=== PATIENT | female | born 1975 | race Caucasian/White ===

== ENCOUNTER 2016-12-23 09:32 | Emergency (ER) | payer MEDICAID ==
[2016-12-23 11:05] VITALS: BP 111/69
== END 2016-12-23 11:30 | disposition home or self-care (01) ==
LOC: ED 09:32
DX: M54.12 Radiculopathy, cervical region (principal); M67.431 Ganglion, right wrist

== ENCOUNTER 2017-01-28 19:52 | Emergency (ER) | payer MEDICAID ==
[~2017-01-28] VITALS: Ht 152.4 cm; Wt 74.4 kg
[2017-01-28 20:25] VITALS: BP 137/69
== END 2017-01-28 21:51 | disposition home or self-care (01) ==
LOC: ED 19:52
DX: H66.92 Otitis media, unspecified, left ear (principal); R09.81 Nasal congestion

== ENCOUNTER 2017-02-02 13:52 | Emergency (ER) | payer MEDICAID ==
[~2017-02-02] VITALS: Ht 149.9 cm; Wt 73.7 kg
[2017-02-02 13:55] VITALS: BP 112/62
== END 2017-02-02 15:33 | disposition home or self-care (01) ==
LOC: ED 13:52
DX: H60.92 Unspecified otitis externa, left ear (principal)

== ENCOUNTER 2017-08-29 07:13 | Emergency (ER) | payer MEDICAID ==
[~2017-08-29] VITALS: Ht 152.4 cm; Wt 75.7 kg
[2017-08-29 07:17] VITALS: Ht 152.4 cm; Wt 75.7 kg
[2017-08-29 09:00] VITALS: BP 118/64
== END 2017-08-29 09:00 | disposition home or self-care (01) ==
LOC: ED 07:13
DX: J11.1 Influenza due to unidentified influenza virus with other respiratory manifestations (principal)
CPT/HCPCS: Q0092

== ENCOUNTER 2017-10-19 13:24 | Emergency (ER) | payer MEDICAID ==
[~2017-10-19] VITALS: Ht 124.5 cm; Wt 62.6 kg
[2017-10-19 14:18] VITALS: BP 120/65
== END 2017-10-19 14:18 | disposition home or self-care (01) ==
LOC: ED 13:24
DX: S56.118A Strain of flexor muscle, fascia and tendon of left little finger at forearm level, initial encounter (principal); X58.XXXA Exposure to other specified factors, initial encounter; Y93.89 Activity, other specified; Y92.89 Other specified places as the place of occurrence of the external cause; Y99.8 Other external cause status
CPT/HCPCS: A4570

== ENCOUNTER 2018-03-24 11:18 | Emergency (ER) | payer MEDICAID ==
[~2018-03-24] VITALS: Ht 160 cm; Wt 71.7 kg
[2018-03-24 11:19] VITALS: BP 117/67; Ht 160 cm; Wt 71.7 kg
== END 2018-03-24 12:31 | disposition home or self-care (01) ==
LOC: ED 11:18
DX: R51 Headache (principal)
CPT/HCPCS: J7030

== ENCOUNTER 2018-06-26 10:54 | Emergency (ER) | payer MEDICAID ==
[~2018-06-26] VITALS: Ht 152.4 cm; Wt 73.9 kg
[2018-06-26 12:23] VITALS: BP 144/77
== END 2018-06-26 12:23 | disposition home or self-care (01) ==
LOC: ED 10:54
DX: R07.89 Other chest pain (principal); N64.4 Mastodynia
CPT/HCPCS: Q0092

== ENCOUNTER 2018-12-23 08:01 | Emergency (ER) | payer MEDICAID ==
[~2018-12-23] VITALS: Ht 144.8 cm; Wt 72.6 kg
[2018-12-23 08:12] VITALS: Ht 144.8 cm; Wt 72.6 kg
[2018-12-23 11:07] VITALS: BP 110/62
== END 2018-12-23 11:07 | disposition home or self-care (01) ==
LOC: ED 08:01
DX: J30.9 Allergic rhinitis, unspecified (principal); H57.89 Other specified disorders of eye and adnexa